=== PATIENT | female | born 1955 | race Caucasian/White ===

== ENCOUNTER 2022-02-09 08:45 | Inpatient (IN) | payer MEDICARE ==
[2022-02-10] MEDS ORDERED: Acetaminophen 500 MG Tab PO ONE (06:30)
[2022-02-10] MEDS ORDERED: Celecoxib 200 MG Cap PO ONE (06:30)
[2022-02-10] MEDS ORDERED: Isosulfan Blue 5 ML SDV ONE (06:33)
[2022-02-10] MEDS ORDERED: Dextrose 5%-Lactated Ringers 1,000 ML IV SCH (06:45)
[2022-02-10] MEDS ORDERED: Ondansetron 4 MG/2 ML SDV ONE (07:06)
[2022-02-10] MEDS ORDERED: Propofol 200 MG/20 ML SDV ONE (07:06)
[2022-02-10] MEDS ORDERED: Rocuronium 50 MG/5 ML Vial ONE (07:06)
[2022-02-10] MEDS ORDERED: fentaNYL 250 MCG/5 ML SDV ONE ×2 (07:06→08:54)
[2022-02-10] MEDS ORDERED: Neostigmine Methylsulfate 1 MG/ML 5 ML Syringe ONE (07:06)
[2022-02-10] MEDS ORDERED: Dexamethasone 4 MG/ML SDV ONE (07:06)
[2022-02-10] MEDS ORDERED: Glycopyrrolate 0.2 MG/ML 5 ML MDV ONE (07:06)
[2022-02-10] MEDS ORDERED: Scopolamine 1.5 MG Transdermal Patch TOP ONE (07:15)
[2022-02-10] MEDS ORDERED: ceFAZolin 2 GM in Sodium Chloride 0.9% 100 ML IV ONE (07:30)
[2022-02-10] MEDS ORDERED: ceFAZolin 2 GM in Premix Bag 1 BAG IV ONE (07:30)
[2022-02-10] MEDS ORDERED: Ketamine 18 MG in Sodium Chloride 0.9% 19.82 ML IV SCH (08:00)
[2022-02-10] MEDS ORDERED: Ketamine 19 MG in Sodium Chloride 0.9% 19.81 ML IV SCH (08:00)
[2022-02-10] MEDS ORDERED: Ketamine 500 MG/5 ML MDV IV SCH ×2 (08:00)
[2022-02-10] MEDS ORDERED: Naloxone 0.4 MG/ML SDV IVPUSH PRN (10:13)
[2022-02-10] MEDS ORDERED: diphenhydrAMINE 50 MG/ML SDV IVPUSH PRN (10:13)
[2022-02-10] MEDS ORDERED: diphenhydrAMINE 25 MG Cap PO PRN (10:13)
[2022-02-10] MEDS ORDERED: Ondansetron 4 MG/2 ML SDV IVPUSH PRN ×3 (10:13→14:00)
[2022-02-10] MEDS ORDERED: Lactated Ringers 1,000 ML ONE (10:17)
[2022-02-10] MEDS: HYDROmorphone/Normal Saline 6 MG/30 ML PCA Vial IV PRN ×2 (10:19→21:55)
[2022-02-10] MEDS ORDERED: Ondansetron 4 MG/2 ML SDV IVPUSH ONE (10:37)
[2022-02-10] MEDS ORDERED: hydrOXYzine HCL 100 MG/2 ML SDV IM ONE (10:37)
[2022-02-10] MEDS ORDERED: hydrOXYzine HCL 100 MG/2 ML SDV IM PRN ×2 (11:47→14:00)
[2022-02-10] MEDS ORDERED: Cyclobenzaprine 10 MG Tab PO PRN (11:51)
[2022-02-10] MEDS: Acetaminophen 500 MG Tab PO SCH ×2 (13:57→20:51)
[2022-02-10] MEDS: ceFAZolin 2 GM in Premix Bag 1 BAG IV SCH ×2 (16:32→23:15)
[2022-02-11] MEDS: Acetaminophen 500 MG Tab PO SCH ×4 (03:24→20:07)
[2022-02-11] MEDS ORDERED: Dextrose 5%-Lactated Ringers 1,000 ML IV SCH (07:30)
[2022-02-11] MEDS: ceFAZolin 2 GM in Premix Bag 1 BAG IV SCH ×3 (08:07→23:57)
[2022-02-11] MEDS: Docusate Sodium 100 MG Cap PO SCH ×2 (08:09→20:08)
[2022-02-11] MEDS: Bisacodyl 5 MG Tab PO SCH ×2 (08:09→20:08)
[2022-02-11] MEDS: Fluticasone NASAL Spray 16 GM Bottle NAS SCH (08:10)
[2022-02-11] MEDS: HYDROmorphone 2 MG Tab PO PRN ×3 (08:40→17:19)
[2022-02-12] MEDS: Acetaminophen 500 MG Tab PO SCH ×2 (01:34→07:22)
[2022-02-12] MEDS: ceFAZolin 2 GM in Premix Bag 1 BAG IV SCH (07:23)
[2022-02-12] MEDS: Bisacodyl 5 MG Tab PO SCH (08:18)
[2022-02-12] MEDS: Docusate Sodium 100 MG Cap PO SCH (08:18)
[2022-02-12] MEDS: Fluticasone NASAL Spray 16 GM Bottle NAS SCH (08:45)
[2022-02-12] MEDS ORDERED: Bacitracin Oint 28.35 GM Tube TOP ONE (09:00)
[2022-02-12 10:41] VITALS: BP 133/64; PULSE 80
== END 2022-02-12 10:45 | disposition home or self-care (01) | DRG 581 ==
LOC: JP.SDS 02-10 06:13 → EDSTATUS 02-10 07:30 → JP.MS 02-10 10:30
PROVIDERS: ADMIT Surgery; ATTEND Surgery
PROC: 0HTV0ZZ Resection of Bilateral Breast, Open Approach (ICD-10-PCS; principal; 2022-02-10)
PROC: 07B60ZZ Excision of Left Axillary Lymphatic, Open Approach (ICD-10-PCS; 2022-02-10)
PROC: 07B50ZZ Excision of Right Axillary Lymphatic, Open Approach (ICD-10-PCS; 2022-02-10)
PROC: 4A1635H Monitoring of Lymphatic Flow using Indocyanine Green Dye, Percutaneous Approach (ICD-10-PCS; 2022-02-10)
DX: D05.12 Intraductal carcinoma in situ of left breast (principal); E78.00 Pure hypercholesterolemia, unspecified; I10 Essential (primary) hypertension; Z80.41 Family history of malignant neoplasm of ovary; Z80.3 Family history of malignant neoplasm of breast
CPT/HCPCS: 88307; 88342; A9270-GY; J0690; J1100; J1170; J2405; J2704; J2710; J3010; J3410; J3490; J7120; J7121; Q9968